=== PATIENT | female | born 1940 | race Caucasian/White ===

== ENCOUNTER 2022-03-29 20:10 | Emergency (ER) | payer OTHER, SELFPAY ==
[2022-03-29 20:23] VITALS: BP 153/72; PULSE 74; RESP 20; TEMP 36.9; O2SAT 94; BMI 25.0
--- NOTE | 2022-03-29 20:25 | PC.NURSE ---
pt has fish hook in the distal phalange of the 3rd digit, ryne in in the finger and not protruding no active bleeding noted at this time
--- NOTE | 2022-03-29 21:05 | ED_ITS ---
HPI - Extremity Injury (Upper) General Chief Complaint: Extremity Injury, Upper Stated Complaint: Fish Hook in left middle finger Time Seen by Provider: 03/29/22 20:14 Source: patient and family Mode of arrival: Ambulatory History of Present Illness HPI narrative: 82F non smoker wihtout any significant medical history presents with a fish hook stuck in her left middle finger. She was using a small fly to fish while up in and drove here for help. She denies any other injury. She has no numbness tingling or weakness. She states her tetanus is up to date. She hadn't tried to remove it as she believes there is a ryne still on. She is otherwise well and gree of complaint. Related Data Home Medications Medication Instructions Recorded Confirmed cephalexin 250 mg capsule (Keflex) ##0 08/04/16 sulfamethoxazole 800 PO BID ##0 08/04/16 mg-trimethoprim 160 mg tablet Previous Rx's Medication Instructions Recorded clindamycin HCl 300 mg capsule 300 mg PO Q6H #28 caps 08/05/16 Allergies Allergy/AdvReac Type Severity Reaction Status Date / Time ciprofloxacin [From CIPRO] Allergy Unknown Unverified 12/18/17 12:02 Review of Systems Review of Systems Narrative: GENERAL: Denies chills, fatigue, malaise, fever, sweats. HEENT: Denies runny nose or sore throat RESPIRATORY: Denies shortness of breath or cough CARDIOVASCULAR: Denies chest pain GASTROINTESTINAL: Denies nausea, vomiting, abdominal pain, diarrhea, constipation, melena. : Denies dysuria, frequency MUSCULOSKELETAL: See HPI SKIN: See HPI NEUROLOGIC: Denies numbness weakness and tingling PSYCHIATRIC: No concerning psychosocial issues. 12 point review of systems is negative except for those stated above Patient History Social History Smoking Status: Never smoker Smoking Status: Never smoker Substance Use Type: does not use Exam Narrative Exam Narrative: GEN: AOx3 and in mild distress EYES: Pupils are equal, round, and reactive to light and accommodation. Extraoccular muscles are intact bilaterally. There is no subconjunctival hemorrhage or exudate. CHEST: Lungs are clear to auscultation bilaterally and free of wheezes, rales, or rhonchi. Heart rate is regular rhythm, there are no murmurs, clicks, rubs, or gallops. There is no chest wall tenderness. ABD: Abdomen is soft and nontender. There is no guarding or rebound. Bowel sounds are normal in all 4 quadrants. There is no mass or organomegaly. EXT: fishing fly hook imbedded on volar surface of left middle finger overlying the middle phalanx SKIN: Warm, pink, and dry. No erythema or rash Initial Vital Signs Initial Vital Signs: Vital Signs Temperature 98.4 F 03/29/22 20:23 Pulse Rate 74 03/29/22 20:23 Respiratory Rate 20 03/29/22 20:23 Blood Pressure 153/72 H 03/29/22 20:23 Pulse Oximetry 94 03/29/22 20:23 Oxygen Delivery Method 03/29/22 20:23 Course Course Course Narrative: skin prepped with chlorhexadine. Lidocaine 2% injected along shank of hook. Point of hook is pushed through skin to expose ryne which was clamped down allowing the hook to be easily removed. Minimal bleeding noted. Patient tolerated well. Post procedure patient remains without neurovascular change Vital Signs Vital signs: Vital Signs - 8 hr 03/29/22 20:23 Temperature 98.4 F Pulse Rate 74 Respiratory Rate 20 Blood Pressure 153/72 H Pulse Oximetry 94 Oxygen Delivery Method Room Air Discharge Plan Departure Patient Disposition: Home Clinical Impression: Fish hook injury of finger of left hand Instructions: DI for Removal of Foreign Body From Skin Activity Restrictions/Additional Instructions: *You have been diagnosed with [fishhook removal from your finger.] *What to do: *Please continue to take your regular medications as directed. *Please follow up with your primary care provider in 2-3 days, call for an appointment. Let them know you were seen in the Emergency Department and that we ask that you be seen in follow up. We will electronically transmit a record of today's note if your PCP is in our system *If you do not have a primary care provider please contact the [facility] Resource line at [phone]. They will ask some questions about your medical history and help get you set up with a doctor in the community. *Return to Emergency Department if you should have any new, worsening or gely rning symptoms Prescriptions: No Action cephalexin [Keflex] 250 mg capsule Qty: 0 sulfamethoxazole-trimethoprim 800-160 mg tablet PO BID Qty: 0 clindamycin HCl 300 MG capsule 300 mg PO Q6H Qty: 28 0RF Visit Report Forms: Patient Portal/API
== END 2022-03-29 20:39 | disposition home or self-care (01) ==
LOC: ED 21:02
PROVIDERS: Emergency Provider Emergency Medicine
DX: S61.243A Puncture wound with foreign body of left middle finger without damage to nail, initial encounter (principal)
CPT/HCPCS: 99281

== ENCOUNTER 2024-03-04 08:32 | Emergency (ER) | payer OTHER, SELFPAY ==
[2024-03-04] VITALS (7 sets, daily range): BP systolic 122–146; BP diastolic 65–75; PULSE 56–89; RESP 18; TEMP 36.6; O2SAT 99–100; BMI 25.7
--- NOTE | 2024-03-04 08:36 | DI.CT.S_ITS ---
PROCEDURE: CT ABDOMEN PELVIS W CON INDICATIONS: abd pain eval for obstruction TECHNIQUE: After the administration of intravenous contrast, axial sections acquired from the lung bases to the pubic symphysis. Coronal and sagittal reformats were performed. For radiation dose reduction, the following was used: automated exposure control, adjustment of mA and/or kV according to patient size. COMPARISON: None. FINDINGS: Image quality: Diagnostic. Lower Chest: No significant findings. ABDOMEN: Liver: No solid mass. Gallbladder: Distended gallbladder without wall thickening or radiopaque stones. Biliary ducts: No biliary dilation. Pancreas: No ductal dilation. Spleen: Size is within normal limits. Adrenal Glands: No adrenal nodules. Kidneys and Ureters: No hydronephrosis. No solid mass. No complex renal cystic lesion which requires follow up. Stomach and Bowel: The rectum is decompressed with question possible wall thickening and edema. Cannot exclude a rectosigmoid junction stricture. The sigmoid is prominent in size, and contains large fecal load. The more proximal colon diffusely has moderately large fecal load. It is not abnormally dilated. Small bowel loops are not abnormally dilated. Diverticulosis without evidence of acute diverticulitis. Peritoneum: No abnormal intraperitoneal fluid. No free air. Ventral Wall: No significant ventral hernia. Abdominal Nodes: No retroperitoneal or mesenteric adenopathy by size criteria. Vessels: Aorta and inferior vena cava are normal in size. PELVIS: Pelvic Organs: Uterus is surgically absent. No adnexal masses.. Bladder: No bladder wall thickening, accounting for underdistention. Pelvic Nodes: No enlarged lymph nodes. Miscellaneous: No inguinal hernias are seen. Bones: No aggressive osseous abnormality. Extensive lumbar degenerative change. Old mild L1 compression. IMPRESSION: 1. The sigmoid is prominent and filled with fecal contents. The rectum is decompressed with a possible mildly edematous and thickened wall. Cannot exclude a rectosigmoid junction stricture or constricting lesion. 2. Large diffuse fecal load proximal to the rectum. 3. Distended gallbladder. Comment: Recommend direct visualization of the rectosigmoid junction to exclude an underlying lesion if the patient has not had recent colonoscopy after symptoms resolve. Dictated by: Marek Gentile M.D. on 03/04/2024 at 9:56 Approved by: Marek Gentile M.D. on 03/04/2024 at 10:03
--- NOTE | 2024-03-04 08:45 | ED.GENADULT ---
HPI - General Adult General Chief complaint: Abdominal Pain Stated complaint: per pt has abd blockage, sent [facility] Time Seen by Provider: 03/04/24 08:36 Source: patient Mode of arrival: Ambulatory Limitations: no limitations History of Present Illness HPI narrative: 83-year-old female. 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 Has never had surgery for them. States her last 1 was about 1 year ago. Is here for evaluation of symptoms that she states is consistent with her prior history of bowel obstructions. Symptoms started yesterday. Is having some nausea but no vomiting. No urinary symptoms. Has not had a bowel movement. It has not passing flatus. Went to the walk-in clinic and then came to the emergency department for evaluation. Related Data Home Medications Medication Instructions Recorded Confirmed cephalexin 250 mg capsule (Keflex) ##0 08/04/16 sulfamethoxazole 800 PO BID ##0 08/04/16 mg-trimethoprim 160 mg tablet Previous Rx's Medication Instructions Recorded clindamycin HCl 300 mg capsule 300 mg PO Q6H #28 caps 08/05/16 Allergies Allergy/AdvReac Type Severity Reaction Status Date / Time ciprofloxacin [From CIPRO] Allergy Unknown Unverified 12/18/17 12:02 Review of Systems Constitutional Constitutional: Reports system reviewed and no additional complaints, except as documented Cardiovascular Cardiovascular: Reports system reviewed and no additional complaints, except as documented Respiratory Respiratory: Reports system reviewed and no additional complaints, except as documented Gastrointestinal Gastrointestinal: Reports system reviewed and no additional complaints, except as documented Integumentary/Breasts Skin/Breast: Reports system reviewed and no additional complaints, except as documented Neurologic Neurologic: Reports system reviewed and no additional complaints, except as documented Hematologic/Lymphatic On Anticoagulants: No Patient History Social History Smoking Status: Never smoker Smoking Status: Never smoker Substance Use Type: does not use Exam Initial Vital Signs Initial Vital Signs: Vital Signs Pulse Rate 89 03/04/24 08:39 Blood Pressure 138/65 03/04/24 08:39 Pulse Oximetry 100 03/04/24 08:39 HENMT Head: normal to inspection and normocephalic Resp Effort & Inspection: normal respiratory effort Auscultation: clear to auscultation bilaterally Cardio Rate: regular rate Rhythm: regular rhythm GI Inspection: non-distended Palpation: soft, No firm, No guarding and tender Skin General: no rashes or lesions noted Neuro General: patient alert, patient awake and moves all extremities Course Orders Ordered: ED Orders 03/04/24 08:36 CT abdomen pelvis w con Stat 03/04/24 08:50 Comprehensive Metabolic Panel Stat Lipase Stat 03/04/24 09:10 Complete Blood Count AUTO DIFF Stat Discontinued Medications Magnesium Citrate (Magnesium Citrate 300 Ml Solution) 300 ml PO NOW ONE Stop: 03/04/24 11:37 Vital Signs Vital signs: Vital Signs - 8 hr 03/04/24 08:39 03/04/24 08:39 03/04/24 08:42 Temperature 97.8 F Pulse Rate 89 83 Respiratory Rate 18 Blood Pressure 138/65 138/65 Pulse Oximetry 100 99 Oxygen Delivery Method Room Air 03/04/24 09:00 03/04/24 09:00 03/04/24 09:30 Temperature Pulse Rate 69 72 Respiratory Rate Blood Pressure 145/65 H Pulse Oximetry 99 99 Oxygen Delivery Method 03/04/24 09:30 03/04/24 09:46 03/04/24 09:46 Temperature Pulse Rate 69 Respiratory Rate Blood Pressure 122/75 126/74 Pulse Oximetry 99 Oxygen Delivery Method 03/04/24 10:00 03/04/24 10:00 Temperature Pulse Rate 63 Respiratory Rate Blood Pressure 127/69 Pulse Oximetry 99 Oxygen Delivery Method Medical Decision Making Lab Data Lab results reviewed: Yes I reviewed the patient's lab results. 03/04/24 09:10 03/04/24 08:50 Labs: Lab Results 03/04/24 03/04/24 Range/Units 08:50 09:10 WBC 10.5 (4.5-11.0) X10^3/uL RBC 3.89 L (4.0-5.2) X10^6/uL Hgb 11.8 L (12.0-16.0) g/dL Hct 35.3 L (36-46) % MCV 90.7 (80-100) fL MCH 30.3 (26-34) PG MCHC 33.4 (30-36) % RDW 13.5 (11.6-14.8) % Plt Count 286 (150-400) X10^3/uL Neut % (Auto) 69.4 (50-75) % Lymph % (Auto) 19.7 L (25-40) % [place] % (Auto) 9.1 (3-14) % Eos % (Auto) 1.4 L (2-4) % Baso % (Auto) 0.4 (0-2) % Neut # (Auto) 7300 H (1159-6272) /uL Lymph # (Auto) 2100 (9372-3176) /uL [place] # (Auto) 900 (0-900) /uL Eos # (Auto) 100 (0-450) /uL Baso # (Auto) 0 (0-100) /uL Sodium 140 (137-145) mmol/L Potassium 4.2 (3.4-5.1) mmol/L Chloride 108 H (98-107) mmol/L Carbon Dioxide 25 (22-32) mmol/L BUN 25 H (7-17) mg/dL Creatinine 1.15 H (0.52-1.04) mg/dL Estimated GFR 48 L (>60) mL/min BUN/Creatinine Ratio 21.7 (6-22) Glucose 101 (80-110) mg/dL Calcium 9.7 (8.4-10.2) mg/dL Total Bilirubin 0.5 (0.2-1.3) mg/dL AST 34 (14-36) IU/L ALT 22 (<35) IU/L Alkaline Phosphatase 70 (38-126) U/L Total Protein 7.5 (6.3-8.2) g/dL Albumin 4.5 (3.5-5.0) g/dL Globulin 3.0 (1.7-4.1) g/dL Albumin/Globulin Ratio 1.5 (1.0-2.8) Lipase 65 (23-300) U/L Urine Dip Bedside Urine Glucose Negative Bedside Urine Bilirubin - Negative Bedside Urine Ketone - Negative Urine Specific [place] 1.010 Bedside Urine Occult Blood - Negative Bedside Urine pH 7.5 Bedside Urine Protein - Negative Bedside Urine Urobilinogen - Negative Bedside Urine Nitrite - Negative Bedside Urine Leukocytes - Negative Esterase Point of care testing: Urine Dip Bedside Urine Glucose Negative Bedside Urine Bilirubin - Negative Bedside Urine Ketone - Negative Urine Specific [place] 1.010 Bedside Urine Occult Blood - Negative Bedside Urine pH 7.5 Bedside Urine Protein - Negative Bedside Urine Urobilinogen - Negative Bedside Urine Nitrite - Negative Bedside Urine Leukocytes - Negative Esterase Imaging Data CT scan - abdomen/pelvis: Radiologist's Impression: PROCEDURE: CT ABDOMEN PELVIS W CON INDICATIONS: abd pain eval for obstruction TECHNIQUE: After the administration of intravenous contrast, axial sections acquired from the lung bases to the pubic symphysis. Coronal and sagittal reformats were performed. For radiation dose reduction, the following was used: automated exposure control, adjustment of mA and/or kV according to patient size. COMPARISON: None. FINDINGS: Image quality: Diagnostic. Lower Chest: No significant findings. ABDOMEN: Liver: No solid mass. Gallbladder: Distended gallbladder without wall thickening or radiopaque stones. Biliary ducts: No biliary dilation. Pancreas: No ductal dilation. Spleen: Size is within normal limits. Adrenal Glands: No adrenal nodules. Kidneys and Ureters: No hydronephrosis. No solid mass. No complex renal cystic lesion which requires follow up. Stomach and Bowel: The rectum is decompressed with question possible wall thickening and edema. Cannot exclude a rectosigmoid junction stricture. The sigmoid is prominent in size, and contains large fecal load. The more proximal colon diffusely has moderately large fecal load. It is not abnormally dilated. Small bowel loops are not abnormally dilated. Diverticulosis without evidence of acute diverticulitis. Peritoneum: No abnormal intraperitoneal fluid. No free air. Ventral Wall: No significant ventral hernia. Abdominal Nodes: No retroperitoneal or mesenteric adenopathy by size criteria. Vessels: Aorta and inferior vena cava are normal in size. PELVIS: Pelvic Organs: Uterus is surgically absent. No adnexal masses.. Bladder: No bladder wall thickening, accounting for underdistention. Pelvic Nodes: No enlarged lymph nodes. Miscellaneous: No inguinal hernias are seen. Bones: No aggressive osseous abnormality. Extensive lumbar degenerative change. Old mild L1 compression. IMPRESSION: 1. The sigmoid is prominent and filled with fecal contents. The rectum is decompressed with a possible mildly edematous and thickened wall. Cannot exclude a rectosigmoid junction stricture or constricting lesion. 2. Large diffuse fecal load proximal to the rectum. 3. Distended gallbladder. Comment: Recommend direct visualization of the rectosigmoid junction to exclude an underlying lesion if the patient has not had recent colonoscopy after symptoms resolve. MDM Narrative Medical decision making narrative: CT scan does not show signs of bowel obstruction. She does have a large stool burden which given her history could very well be the cause of her discomfort as well. She stated that she tried to go to several pharmacies yesterday to get magnesium citrate which normally helps for her but no pharmacies had this medication. No indication for admission to the hospital. Provided a dose of magnesium citrate here in the emergency department. She does have a benign abdominal exam. Advised that she contact her primary doctor for follow-up. She expressed understanding and agreement. Discharge Plan Departure Patient Disposition: Home Clinical Impression: Constipation Instructions: DI for Constipation Activity Restrictions/Additional Instructions: Continue to take all of your medications as directed. You can try other laxatives such as MiraLax if they magnesium citrate that you were given today is not successful. Return to the emergency department for new symptoms. Prescriptions: No Action cephalexin [Keflex] 250 mg capsule Qty: 0 sulfamethoxazole-trimethoprim 800-160 mg tablet PO BID Qty: 0 clindamycin HCl 300 MG capsule 300 mg PO Q6H Qty: 28 0RF Referrals: Miscellaneous,DoctorMD [Primary Care Provider] - Stand Alone Forms: Patient Portal/API
[2024-03-04 09:21] LABS: Add Manual Diff / Slide Review NO; Basophils Absolute Auto 0 /uL (0-100); Basophils Percent Auto 0.4 % (0-2); Eosinophils Absolute Auto 100 /uL (0-450); Eosinophils Percent Auto 1.4 % (2-4); Hematocrit 35.3 % (36-46); Hemoglobin 11.8 g/dL (12.0-16.0); Lymphocytes Absolute Auto 2100 /uL (1100-4500); Lymphocytes Percent Auto 19.7 % (25-40); Mean Corpuscular HGB Conc 33.4 % (30-36); Mean Corpuscular Hemoglobin 30.3 PG (26-34); Mean Corpuscular Volume 90.7 fL (80-100); Monocytes Absolute Auto 900 /uL (0-900); Monocytes Percent Auto 9.1 % (3-14); Neutrophils Absolute Auto 7300 /uL (1500-7000); Neutrophils Percent Auto 69.4 % (50-75); Platelet Count 286 X10^3/uL (150-400); Red Blood Cell Count 3.89 X10^6/uL (4.0-5.2); Red Cell Distribution Width 13.5 % (11.6-14.8); White Blood Cell Count 10.5 X10^3/uL (4.5-11.0)
[2024-03-04 09:23] LABS: Alanine Aminotransferase 22 IU/L (<35); Albumin 4.5 g/dL (3.5-5.0); Albumin Globulin Ratio 1.5 (1.0-2.8); Alkaline Phosphatase 70 U/L (38-126); Aspartate Aminotransferase 34 IU/L (14-36); BUN Creatinine Ratio 21.7 (6-22); Bilirubin Total 0.5 mg/dL (0.2-1.3); Blood Urea Nitrogen 25 mg/dL (7-17); Calcium 9.7 mg/dL (8.4-10.2); Carbon Dioxide 25 mmol/L (22-32); Chloride 108 mmol/L (98-107); Estimated Glomerular Filt Rate 48 mL/min (>60); Glucose 101 mg/dL (80-110); HEMOLYSIS < 15 (0-50); Lipase 65 U/L (23-300); Potassium 4.2 mmol/L (3.4-5.1); Sodium 140 mmol/L (137-145); Total Protein 7.5 g/dL (6.3-8.2)
[2024-03-04] MEDS: MAGNESIUM CITRATE 300 ML SOLUTION PO (11:46)
== END 2024-03-04 11:52 | disposition home or self-care (01) ==
PROVIDERS: Emergency Provider Emergency Medicine
DX: K59.00 Constipation, unspecified (principal)
CPT/HCPCS: 36415; 74177; 80053; 81003; 83690; 85025; 99284; Q9967

== ENCOUNTER → 2025-02-25 10:29 | Outpatient (CLI) | payer MEDICARE, OTHER, SELFPAY | LOC: LAB 10:29 | PROVIDERS: Visit Provider Registered Nurse | DX: R30.0 Dysuria (principal) | CPT/HCPCS: 87077; 87086 ==